=== PATIENT | female | born 1980 | race Two or more races ===

== ENCOUNTER 2024-06-04 08:00 | Inpatient (IN) | payer OTHER ==
[~2024-06-04] VITALS: Ht 157.5 cm; Wt 69.4 kg
[2024-06-04 09:44] LABS: PH,URINE 5.5 (5.0-8.0); URINE APPEARANCE Clear; URINE BILIRRUBIN Negative (NEGATIVE); URINE BLOOD Negative; URINE COLOR Yellow; URINE GLUCOSE Negative (NEGATIVE); URINE LEUKOCYTE Negative; URINE NITRATE Negative; URINE PROTEIN Negative (NEGATIVE); URINE UROBILINOGEN 0.2 E.U./dl
[2024-06-04 09:46] LABS: URINE BACTERIA 12.5 uL (0.0-1933); URINE EPITHELIAL CELLS 46.1 uL (0.0-38.8); URINE RBC 7.9 uL (0.0-20.8)
[2024-06-04 10:00] LABS: HEMATOCRIT 33.8 % (36.0-45.00); MEAN CELL VOLUME 80.4 fL (80.00-100.00); MEAN CORPUSCULAR HEMOGLOBIN 26.2 pg (27.00-32.0); MEAN CORPUSCULAR HGB CONC 32.6 g/dl (32.0-36.0); PLATELET COUNT 296 K/uL (150-450); RED BLOOD COUNT 4.21 M/uL (4.00-6.00); RED CELL DISTRIBUTION WIDTH 16.3 % (11.5-14.5)
[2024-06-04 10:22] LABS: INR 0.98; PARTIAL THROMBOPLASTIN TIME 28.8 SECONDS (22.0-34.0); PROTHROMBIN TIME 10.3 SECONDS (9.0-11.5)
[2024-06-04 11:01] LABS: ALBUMIN 3.9 gm/dL (3.4-5.0); BILIRUBIN TOTAL 0.56 mg/dL (0.3-1.2); CALCIUM 9.2 mg/dL (8.5-10.1); CREATININE SERUM 0.96 mg/dL (0.55-1.02); GFR 62.85; GLOBULINA 3.7 G/DL (2.4-3.5); POTASSIUM 4.35 mEq/L (3.5-5.1); TOTAL PROTEIN 7.6 gm/dL (6.4-8.2)
[2024-06-14] MEDS ORDERED: POVIDONE-IODINE 118 ML BOTT TOP ONE (07:40)
[2024-06-14] MEDS ORDERED: METRONIDAZOLE/SODIUM CHLORIDE 500 MG/100 ML PIGGYBACK IV ONE (07:51)
[2024-06-14] MEDS ORDERED: CEFOXITIN SODIUM 2,000 MG VIAL IV ONE (07:51)
[2024-06-14] MEDS ORDERED: BACLOFEN10 MG (08:07)
[2024-06-14] MEDS ORDERED: VITAMIN D3125 MC1 (08:08)
[2024-06-14] MEDS ORDERED: LANSOPRAZOLE30 MG (08:08)
[2024-06-14] MEDS ORDERED: TIMOLOL MALEATE5 M4 (08:08)
[2024-06-14] MEDS ORDERED: LEVOCETIRIZINE D5 MG (08:08)
[2024-06-14] MEDS ORDERED: FAMOTIDINE/PF 20 MG/2 ML VIAL IV SCH (10:20)
[2024-06-14] MEDS ORDERED: RINGERS SOLUTION,LACTATED 1,000 ML IV SCH (10:30)
[2024-06-14] MEDS ORDERED: MEPERIDINE HCL/PF 50 MG/ML VIAL IM PRN (10:30)
[2024-06-14] MEDS ORDERED: PROMETHAZINE HCL 50 MG/ML AMPUL IM PRN (10:30)
[2024-06-14] MEDS ORDERED: ONDANSETRON HCL 2 MG/ML VIAL ONE (11:06)
[2024-06-14] MEDS ORDERED: FAMOTIDINE/PF 20 MG/2 ML VIAL ONE (11:55)
[2024-06-14] MEDS ORDERED: SIMETHICONE 125 MG CAPSULE PO SCH (13:00)
[2024-06-14 17:56] LABS: HEMATOCRIT 32.8 % (36.0-45.00); HEMOGLOBIN 10.7 g/dL (12.0-15.00); MEAN CELL VOLUME 81.4 fL (80.00-100.00); MEAN CORPUSCULAR HEMOGLOBIN 26.5 pg (27.00-32.0); MEAN CORPUSCULAR HGB CONC 32.6 g/dl (32.0-36.0); PLATELET COUNT 238 K/uL (150-450); RED BLOOD COUNT 4.03 M/uL (4.00-6.00); RED CELL DISTRIBUTION WIDTH 16.1 % (11.5-14.5)
[2024-06-15] MEDS ORDERED: ACETAMINOPHEN WITH CODEINE 1 UDTAB TABLET PO PRN (08:15)
[2024-06-15] MEDS ORDERED: NAPROXEN 500 MG TABLET PO PRN (08:15)
[2024-06-17] MEDS ORDERED: Tylenol #3 PO (08:03)
[2024-06-17] MEDS ORDERED: NAPR500T14 PO (08:03)
== END 2024-06-17 08:44 | disposition home or self-care (01) | DRG 743 ==
LOC: O/R 06-14 05:30 → SURG 06-14 07:00 → OB/GYN 06-14 11:13
PROVIDERS: ADMIT Obstetrics & Gynecology; ATTEND Obstetrics & Gynecology
PROC: 0UT70ZZ Resection of Bilateral Fallopian Tubes, Open Approach (ICD-10-PCS; 2024-06-14)
PROC: 0TJB8ZZ Inspection of Bladder, Via Natural or Artificial Opening Endoscopic (ICD-10-PCS; 2024-06-14)
PROC: 0UT90ZZ Resection of Uterus, Open Approach (ICD-10-PCS; principal; 2024-06-14 07:00)
DX: D25.1 Intramural leiomyoma of uterus (principal); D25.2 Subserosal leiomyoma of uterus; D25.0 Submucous leiomyoma of uterus; N80.03 Adenomyosis of the uterus; N81.11 Cystocele, midline; N72 Inflammatory disease of cervix uteri; R10.2 Pelvic and perineal pain; N92.0 Excessive and frequent menstruation with regular cycle; Z20.822 Contact with and (suspected) exposure to COVID-19